=== PATIENT | female | born 1960 | race Caucasian/White ===

== ENCOUNTER → 2016-09-18 | Outpatient (CLI) | payer BC ==
[~2016-09-18] MED LIST: HYDROCODONE BIT1 T11 PO; KEFLEX500 MG PO; LEVOTHYROXIN0.137 MG PO; NAPROSYN500 MG PO; SYNTHROID0.15 MG PO
== END | disposition home or self-care (01) ==
LOC: MAMMO 09:24
DX: Z12.31 Encounter for screening mammogram for malignant neoplasm of breast (principal)

== ENCOUNTER → 2021-10-24 | Day surgery (SDC) | payer OTHER ==
[2021-10-21 13:40] LABS: BUN 14 mg/dl (7-24); CHLORIDE 109 mmol/L (98-107); CREATININE 0.73 mg/dL (0.55-1.02); POTASSIUM 3.9 mmol/L (3.5-5.1); SODIUM 141 mmol/L (136-145)
[~2021-10-24] VITALS: Ht 172.7 cm; Wt 106.6 kg
[~2021-10-24] MED LIST changes: +LEVOTHYROXINE125 MC1 PO; +LIPITOR40 MG PO; +LYRICA25 M1 PO; +MELOXICAM15 MG PO; +OMEPRAZOLE MAGN20 MG PO; +PROAIR HFA8.5 GM INH; -SYNTHROID0.15 MG PO; +VITAMIN E100 UNI3 PO
[2021-10-24 06:55] VITALS: BP 131/80
[2021-10-24 07:50] VITALS: BP 105/57
[2021-10-24 08:04] VITALS: BP 115/65
== END | disposition home or self-care (01) ==
LOC: SDC 10-21 13:45
PROVIDERS: ATTEND Orthopaedic Surgery
DX: G56.03 Carpal tunnel syndrome, bilateral upper limbs (principal); E03.9 Hypothyroidism, unspecified; E78.00 Pure hypercholesterolemia, unspecified; J44.9 Chronic obstructive pulmonary disease, unspecified; K21.9 Gastro-esophageal reflux disease without esophagitis; Z20.822 Contact with and (suspected) exposure to COVID-19; Z79.899 Other long term (current) drug therapy

== ENCOUNTER → 2022-06-05 | Day surgery (SDC) | payer OTHER ==
[2022-06-04 16:22] LABS: BUN 13 mg/dl (7-24); CHLORIDE 111 mmol/L (98-107); CREATININE 0.91 mg/dL (0.55-1.02); POTASSIUM 3.8 mmol/L (3.5-5.1); SODIUM 142 mmol/L (136-145)
[~2022-06-05] VITALS: Ht 172.7 cm; Wt 106.6 kg
[2022-06-05 11:19] VITALS: BP 143/74
[2022-06-05 12:06] VITALS: BP 118/62
[2022-06-05 12:21] VITALS: BP 117/68
[2022-06-05 12:27] VITALS: BP 128/73
== END | disposition home or self-care (01) ==
LOC: SDC 06-02 08:45
PROVIDERS: ATTEND Orthopaedic Surgery
DX: G56.03 Carpal tunnel syndrome, bilateral upper limbs (principal); E03.9 Hypothyroidism, unspecified; E78.00 Pure hypercholesterolemia, unspecified; K21.9 Gastro-esophageal reflux disease without esophagitis; J44.9 Chronic obstructive pulmonary disease, unspecified; Z79.899 Other long term (current) drug therapy

== ENCOUNTER → 2022-08-08 | Outpatient (CLI) | payer OTHER | END | disposition home or self-care (01) | LOC: LAB 11:21 | PROVIDERS: ATTEND Internal Medicine | DX: B34.9 Viral infection, unspecified (principal) ==

== ENCOUNTER → 2022-09-18 | Outpatient (CLI) | payer OTHER | END | disposition home or self-care (01) | LOC: LAB 15:07 | PROVIDERS: ATTEND Internal Medicine | DX: J44.1 Chronic obstructive pulmonary disease with (acute) exacerbation (principal) ==

== ENCOUNTER → 2024-10-25 | Outpatient (CLI) | payer BC | END | disposition home or self-care (01) | LOC: MAMMO 14:46 | PROVIDERS: ATTEND Internal Medicine | DX: Z12.31 Encounter for screening mammogram for malignant neoplasm of breast (principal); R92.323 Mammographic fibroglandular density, bilateral breasts ==

== ENCOUNTER → 2025-03-31 | Outpatient (CLI) | payer BC | END | disposition home or self-care (01) | LOC: RAD 12:24 | PROVIDERS: ATTEND Internal Medicine | DX: M17.0 Bilateral primary osteoarthritis of knee (principal); M25.561 Pain in right knee; M25.562 Pain in left knee ==